=== PATIENT | male | born 1985 | race African-American/Black ===

== ENCOUNTER 2016-09-15 12:39 | Emergency (ER) | payer MEDICAID ==
[~2016-09-15] VITALS: Ht 175.3 cm; Wt 82.0 kg
[2016-09-15] MEDS ORDERED: BACITRACIN ZINC OINT UDPKT TOP ONE (13:00)
[2016-09-15] MEDS ORDERED: LIDOCAINE HCL/EPINEPHRINE 1%-EPI 1:100,000 20 ML VIAL MC ONE (13:00)
[2016-09-15] MEDS ORDERED: IBUPROFEN 600MG TABLET PO ONE (13:00)
[2016-09-15] MEDS ORDERED: LIDOCAINE HCL 1% 20ML VIAL (Pyxis) INJ MC ONE (13:15)
[2016-09-15 14:45] VITALS: BP 139/55
== END 2016-09-15 14:53 | disposition home or self-care (01) ==
LOC: ER 12:40
DX: S01.411A Laceration without foreign body of right cheek and temporomandibular area, initial encounter (principal); S21.212A Laceration without foreign body of left back wall of thorax without penetration into thoracic cavity, initial encounter; W26.0XXA Contact with knife, initial encounter; Y93.89 Activity, other specified; Y99.9 Unspecified external cause status; Y92.89 Other specified places as the place of occurrence of the external cause
CPT/HCPCS: 12001; 12014; 99284; J3490; X7700; Z7610

== ENCOUNTER 2017-04-26 10:15 | Emergency (ER) | payer MEDICAID ==
[~2017-04-26] VITALS: Ht 162.6 cm; Wt 75.0 kg
[2017-04-26 10:45] VITALS: BP 115/73
== END 2017-04-26 11:16 | disposition left against medical advice (07) ==
LOC: ER 10:54
DX: R51 Headache (principal); Z53.21 Procedure and treatment not carried out due to patient leaving prior to being seen by health care provider

== ENCOUNTER 2017-05-16 17:43 | Emergency (ER) | payer MEDICAID ==
[~2017-05-16] VITALS: Ht 172.7 cm; Wt 70.0 kg
[2017-05-16] MEDS ORDERED: SODIUM CHLORIDE 0.9% 1,000 ML IV ONE (20:45)
[2017-05-16 21:05] LABS: BASOPHILS % 0.6 % (0.0-2.0); EOSINOPHILS % 0.4 % (0.0-5.0); HEMATOCRIT. 40.2 % (42.0-52.0); HEMOGLOBIN. 13.7 g/dL (14.0-18.0); MEAN CORPUSCULAR HEMOGLOBIN 32.9 pg (28.0-32.0); MEAN CORPUSCULAR VOLUME 96.2 fL (80.0-94.0); MEAN PLATELET VOLUME 9.6 fl (7.4-10.4); MONOCYTES % 6.3 % (2.0-8.0); NEUTROPHILS % 72.7 % (40.0-76.0); PLATELET 130 x1000/uL (130-400); RED BLOOD CELL COUNT 4.18 mill/uL (4.7-6.1); RED CELL DISTRIBUTION WIDTH 13.5 % (11.6-14.6)
[2017-05-16 21:11] LABS: CHLORIDE 104 mEq/L (98-107)
[2017-05-16 21:18] LABS: CARBON DIOXIDE 25 mEq/L (21-32); ETHANOL BLOOD 144 mg/dL
[2017-05-16 22:27] LABS: CLARITY URINE CLEAR (CLEAR); COLOR URINE YELLOW (YELLOW); KETONES URINE NEGATIVE (NEGATIVE); LEUKOCYTE ESTERASE URINE NEGATIVE (NEGATIVE); NITRITE URINE NEGATIVE (NEGATIVE); OCCULT BLOOD URINE NEGATIVE (NEGATIVE); PROTEIN URINE NEGATIVE (NEGATIVE); SPECIFIC GRAVITY URINE 1.017 (1.005-1.030); UROBILINOGEN URINE 0.2 E.U./dL (0.2-1.0)
[2017-05-16 22:41] LABS: *AMPHETAMINES SCREEN URINE NEGATIVE (NEGATIVE); *BARBITURATES SCREEN URINE NEGATIVE (NEGATIVE); *BENZODIAZEPINES SCREEN URINE NEGATIVE (NEGATIVE); *COCAINE SCREEN URINE PRESUMTIVE POSITIVE (NEGATIVE); CANNABINOID URINE SCREEN PRESUMTIVE POSITIVE (NEGATIVE); METHADONE URINE SCREEN NEGATIVE (NEGATIVE); OPIATES URINE SCREEN NEGATIVE (NEGATIVE); PHENCYCLIDINE URINE SCREEN PRESUMTIVE POSITIVE (NEGATIVE)
[2017-05-17] MEDS ORDERED: IOHEXOL-300 100 ML BOTTLE ONE (00:08)
[2017-05-17 00:35] VITALS: BP 118/65
== END 2017-05-17 01:22 | disposition short-term general hospital (02) ==
LOC: ER 17:52
DX: S02.609A Fracture of mandible, unspecified, initial encounter for closed fracture (principal); F12.10 Cannabis abuse, uncomplicated; Y08.89XA Assault by other specified means, initial encounter; Y93.89 Activity, other specified; Y99.8 Other external cause status; Y92.89 Other specified places as the place of occurrence of the external cause
CPT/HCPCS: 36415; 70450; 70486; 71010; 74177; 80048; 80305; 81003; 85025; 96360; 99285; G0482; J7030; Q9967; Z7610

== ENCOUNTER 2021-09-07 17:54 | Emergency (ER) | payer MEDICAID ==
[~2021-09-07] VITALS: Ht 180.3 cm; Wt 82.0 kg
[2021-09-07] MEDS ORDERED: SODIUM CHLORIDE 0.9% 1,000 ML IV ONE (20:00)
[2021-09-07 20:12] LABS: BASOPHILS % 0.2 % (0.0-2.0); EOSINOPHILS % 0.1 % (0.0-5.0); HEMATOCRIT. 38.7 % (42.0-52.0); HEMOGLOBIN. 13.4 g/dL (14.0-18.0); LYMPHOCYTES % 10.2 % (20.0-50.0); MEAN CORPUSCULAR HEMOGLOBIN 32.5 pg (28.0-32.0); MEAN PLATELET VOLUME 9.2 fl (7.4-10.4); MONOCYTES % 4.6 % (2.0-8.0); NEUTROPHILS % 84.9 % (40.0-76.0); PLATELET 154 x1000/uL (130-400); RED BLOOD CELL COUNT 4.12 mill/uL (4.7-6.1); RED CELL DISTRIBUTION WIDTH 13.7 % (11.6-14.6)
[2021-09-07 20:15] LABS: CHLORIDE 108 mEq/L (98-107)
[2021-09-07 20:19] LABS: ETHANOL BLOOD 79 mg/dL
[2021-09-07 22:29] LABS: CLARITY URINE CLEAR (CLEAR); COLOR URINE YELLOW (YELLOW); KETONES URINE NEGATIVE (NEGATIVE); LEUKOCYTE ESTERASE URINE NEGATIVE (NEGATIVE); NITRITE URINE NEGATIVE (NEGATIVE); OCCULT BLOOD URINE NEGATIVE (NEGATIVE); PROTEIN URINE 2+ (NEGATIVE); SPECIFIC GRAVITY URINE 1.016 (1.005-1.030); UROBILINOGEN URINE 0.2 E.U./dL (0.2-1.0)
[2021-09-07 22:44] LABS: *AMPHETAMINES SCREEN URINE NEGATIVE (NEGATIVE)
[2021-09-07 22:45] LABS: *BARBITURATES SCREEN URINE NEGATIVE (NEGATIVE); *BENZODIAZEPINES SCREEN URINE NEGATIVE (NEGATIVE); *COCAINE SCREEN URINE PRESUMTIVE POSITIVE (NEGATIVE); METHADONE URINE SCREEN NEGATIVE (NEGATIVE); OPIATES URINE SCREEN NEGATIVE (NEGATIVE); PHENCYCLIDINE URINE SCREEN NEGATIVE (NEGATIVE)
[2021-09-07 22:46] LABS: CANNABINOID URINE SCREEN PRESUMTIVE POSITIVE (NEGATIVE)
[2021-09-08 05:50] VITALS: BP 122/64
== END 2021-09-08 05:50 | disposition home or self-care (01) ==
LOC: ER 17:54
DX: R41.82 Altered mental status, unspecified (principal); F14.129 Cocaine abuse with intoxication, unspecified; F10.129 Alcohol abuse with intoxication, unspecified; Y90.3 Blood alcohol level of 60-79 mg/100 ml; F12.10 Cannabis abuse, uncomplicated
CPT/HCPCS: 36415; 80053; 80305; 80307; 80320; 80329; 81003; 85025; 93005; 96360; 99285; J7030; G0480